=== PATIENT | female | born 1995 | race Caucasian/White ===

== ENCOUNTER 2020-12-18 01:20 | Emergency (ER) | payer OTHER ==
[~2020-12-18] VITALS: Ht 172.7 cm; Wt 72.6 kg
[2020-12-18] MEDS ORDERED: KETO10TA2 PO (05:36)
== END 2020-12-18 06:01 | disposition home or self-care (01) ==
LOC: ER 01:20
DX: N83.292 Other ovarian cyst, left side (principal); R10.2 Pelvic and perineal pain